=== PATIENT | female | born 1960 | race Caucasian/White ===

== ENCOUNTER → 2024-04-03 | Outpatient (CLI) | payer BC, SELFPAY ==
[2024-04-03 14:34] LABS: Alanine Aminotransferase 20 U/L (10-49); Albumin, Serum 4.7 gm/dL (3.4-4.8); Albumin/Globulin Ratio 1.9 (1.2-2.2); Alkaline Phosphatase 74 U/L (46-116); Anion Gap 9 (7-16); Aspartate Amino Transferase 12 U/L (0-34); BUN/Creatinine Ratio 21 Ratio (12-20); Bilirubin,Total 0.5 mg/dL (0.3-1.2); Blood Urea Nitrogen 21 mg/dL (9-23); Calcium 9.3 mg/dL (8.3-10.6); Calcium (Corrected) 9.3 mg/dL (8.5-10.1); Carbon Dioxide 26.7 mMol/L (20.0-31.0); Chloride 98 mMol/L (98-107); Cholesterol 134 mg/dL (132-200); Globulin 2.5 gm/dL (2.3-3.5); Glucose 94 mg/dL (74-106); Glucose Estimated Average 148 mg/dL (80-131); HDL Cholesterol 45 mg/dL (40-60); Hemoglobin A1C 6.8 % Hgb (4.8-6.0); LDL Cholesterol,Calculated 54 mg/dL (0-130); Osmolality,Calculated 271 (275-295); Potassium 4.5 mMol/L (3.4-5.1); Sodium 134 mMol/L (136-145); Total Protein 7.2 gm/dL (5.7-8.2); Triglycerides 177 mg/dL (30-150); eGFR > 60 See Note
[2024-04-03 14:38] LABS: Creatinine MALB Rnd Ur 114 mg/dL (30-125); Microalbumin, Random Urine < 3 mg/L (0-300)
== END | disposition home or self-care (01) ==
PROVIDERS: PCP Specialist; Referring Provider Specialist; Visit Provider Specialist
DX: E11.65 Type 2 diabetes mellitus with hyperglycemia (principal)
CPT/HCPCS: 36415; 80053; 80061; 82043; 82570; 83036

== ENCOUNTER → 2024-09-04 | Outpatient (CLI) | payer MEDICARE, BC, SELFPAY ==
[2024-09-04 12:41] LABS: Alanine Aminotransferase 12 U/L (10-49); Albumin, Serum 4.7 gm/dL (3.4-4.8); Albumin/Globulin Ratio 1.7 (1.2-2.2); Alkaline Phosphatase 73 U/L (46-116); Anion Gap 11 (7-16); Aspartate Amino Transferase 14 U/L (0-34); BUN/Creatinine Ratio 19 Ratio (12-20); Bilirubin,Total 0.5 mg/dL (0.3-1.2); Blood Urea Nitrogen 19 mg/dL (9-23); Calcium 9.6 mg/dL (8.3-10.6); Calcium (Corrected) 9.6 mg/dL (8.5-10.1); Carbon Dioxide 25.5 mMol/L (20.0-31.0); Cardiac Risk Estimate 2.9 RATIO (3.7-5.6); Chloride 99 mMol/L (98-107); Cholesterol 121 mg/dL (132-200); Creatinine (Component) 1.0 mg/dL (0.6-1.3); Globulin 2.7 gm/dL (2.3-3.5); Glucose 96 mg/dL (74-106); HDL Cholesterol 42 mg/dL (40-60); LDL Cholesterol,Calculated 52 mg/dL (0-130); Osmolality,Calculated 272 (275-295); Potassium 4.7 mMol/L (3.4-5.1); Sodium 135 mMol/L (136-145); Total Protein 7.4 gm/dL (5.7-8.2); Triglycerides 134 mg/dL (30-150); eGFR > 60 See Note
[2024-09-04 13:31] LABS: Creatinine MALB Rnd Ur 143 mg/dL (30-125); Microalbumin Creat Ratio 3 mg/gCrea (<30); Microalbumin, Random Urine 4 mg/L (0-300)
[2024-09-04 13:56] LABS: Glucose Estimated Average 117 mg/dL (80-131); Hemoglobin A1C 5.7 % Hgb (4.8-6.0)
== END | disposition home or self-care (01) ==
LOC: COPL 11:19
PROVIDERS: PCP Specialist; Referring Provider Specialist; Visit Provider Specialist
DX: E11.69 Type 2 diabetes mellitus with other specified complication (principal)
CPT/HCPCS: 36415; 80053; 80061; 82043; 82570; 83036

== ENCOUNTER → 2024-11-09 | Outpatient (CLI) | payer MEDICARE, BC, SELFPAY ==
--- NOTE | 2024-11-09 13:00 | XR_ITS ---
Examination: Breast ultrasound complete, bilateral Date and time of exam: November 09, 2024 1315 hours INDICATIONS: Mammogram 11/29/2023 fibroadenomas inner left breast, history breast cystic disease Technique: Real-time grayscale ultrasonographic imaging bilateral breasts, including all 4 quadrants as well as nipple retroareolar and axillary regions. Findings: Sonographic images right breast Retroareolar cyst 5 x 4 mm No solid nodules Sonographic images left breast 9:00 cyst 5 x 4 mm 10:00 circumscribed nodule 9 x 9 mm IMPRESSION: BI-RADS Category 3: Probably benign findings Recommend 1 additional 6 month left breast sonogram follow-up to document stability of 10:00 nodule described above
--- NOTE | 2024-11-09 14:00 | XR_ITS ---
Examination: Diagnostic digital mammography, bilateral Computer aided detection 3-D breast Tomosynthesis, bilateral Date and time of exam: November 09, 2024 1335 hours, compared to mammograms dating to February 03, 2021 INDICATIONS: History left breast biopsy, negative, family history, sister, breast cancer Technique: Nonmagnified MLO, CC views of the breasts to been obtained, reconstructed from 3-D Tomosynthesis images. R2 computer aided detection program utilized for evaluation of suspicious masses and/or abnormal calcifications. 3-D Tomosynthesis images obtained. Findings: Scattered areas of fibroglandular density. Stable fibroadenoma inner left breast Benign calcifications. No interval suspicious masses Impression: BI-RADS Category 2: Benign findings Recommend yearly follow-up mammography
== END | disposition home or self-care (01) ==
PROVIDERS: PCP Specialist; Referring Provider Specialist; Visit Provider Specialist
DX: R92.323 Mammographic fibroglandular density, bilateral breasts (principal); R92.1 Mammographic calcification found on diagnostic imaging of breast; N63.22 Unspecified lump in the left breast, upper inner quadrant
CPT/HCPCS: 76641; 77062; 77066; G0279

== ENCOUNTER 2025-01-03 14:46 | Emergency (ER) | payer MEDICARE, BC, SELFPAY ==
[2025-01-03 15:35] VITALS: BP 149/75; PULSE 78; RESP 20; TEMP 36.6; O2SAT 96
--- NOTE | 2025-01-03 15:42 | EDNOTE_ITS ---
<Statement entered by Krysten Alexander MD - 01/07/25 16:24> As co-signing physician, I was present and available for consult prn. I concur with the plan and care as documented by the midlevel provider. ED Head Injury RME/HPI General Chief complaint: Fall Stated complaint: FALL LANDING ON FACE & L) ARM Time Seen by Provider: 01/03/25 15:41 Source: patient Arrival date/time: 01/03/25 14:46 Mode of arrival: ambulatory Limitations: no limitations RME / HPI Complaint: head injury (Patient had a ground-level fall resulting in a laceration to the forehead, also complains of left elbow pain) Onset (ago): hour(s) Mechanism of Injury: fall (Ground-level hitting her face on a curved cement embankment. Denies LOC.) Place: outdoors Loss of Consciousness: no Location of injury: frontal Severity: moderate Severity scale (1-10): 5 Quality: sharp Radiation: none and neck (There is mild neck pain) Other Injuries: upper extremity (Abrasion left elbow) Associated symptoms: denies other symptoms Related Data Home Medications ?Medication ?Instructions ?Recorded ?Confirmed albuterol sulfate 90 mcg/actuation 2 puff inhalation Q 6HR PRN 05/14/15 10/03/21 aerosol inhaler (ProAir HFA) Shortness Of Breath #0 in halations metformin 500 mg tablet 500 mg PO QDAY #0 tabs 05/1310/03/21 (Glucophage) fluticasone propionate 50 1 spray intranasal QDAY PRN 12/29/16 10/03/21 mcg/actuation nasal Allergy Symptoms #0 spry spray,suspension tiotropium bromide 18 mcg capsule 1 cap inhalation QDA Y ##90 12/29/16 10/03/21 with inhalation device (Spiriva with HandiHaler) rosuvastatin 5 mg tablet (Crestor) 5 mg PO HS #0 tabs 03/22/17 10/03/21 metronidazole 0.75 % topical gel 1 applic topical BID 09/12/19 10/03/21 nifedipine 60 mg tablet,extended 60 mg PO BID 09/12/19 10/03/21 release cholecalciferol (vitamin D3) 50 2,000 mcg PO QDAY 07/0110/03/21 mcg (2,000 unit) capsule (Vitamin D3) escitalopram oxalate 20 mg tablet 20 mg PO BID 1 10/03/21 (Lexapro) estradiol 0.01% (0.1 mg/gram) 1 applic QWEEK 07/28/20 10/03/21 vaginal cream linaclotide 72 mcg capsule 290 mcg PO QDAY 07/28/20 (Linzess) oxcarbazepine 300 mg tablet 300 mg PO BID 07/28/2007/20 spironolactone 25 mg tablet 25 mg PO QDAY 07/28/2007/20 tretinoin 0.1 % topical cream 1 applic topical QDAY 10/03/21 docusate sodium 50 mg tablet 50 mg PO DAILY 10/03/21 0 10/03/21 melatonin 5 mg tablet 5 mg PO HS PRN Sleep 2 10/03/21 simethicone 62.5 mg oral strips 1 strip PO HS 10/03/21 10/03/21 (Gas-X) Allergies Allergy/AdvReac Type Severity Reaction Status Date / Time erythromycin base Allergy Severe ABDOMINAL Verified 01/03/25 14:49 PAIN / BACK PAIN/ Penicillins Allergy Severe ANAPHYLAXIS Verified 01/03/25 14:49 SHOCK clindamycin Allergy Verified 01/03/25 14:49 felodipine Allergy Verified 01/03/25 14:49 hydrochlorothiazide (From Allergy Verified 01/03/25 14:49 Dyazide) lisinopril (From Zestril) Allergy Verified 01/03/25 14:49 triamterene (From Dyazide) Allergy Verified 01/03/25 14:49 BANDAIDS Allergy Unknown Rash Uncoded 01/03/25 14:49 GLUE Allergy Unknown Rash Uncoded 01/03/25 14:49 SULFA Allergy Unknown Gastrointestinal Uncoded 01/03/25 14:49 Upset TAPE Allergy Unknown Rash Uncoded 01/03/25 14:49 Review of Systems Constitutional Constitutional: Reports system reviewed and no additional complaints, except as documented Eyes Eyes: Reports system reviewed and no additional complaints, except as documented, Denies dry eyes, Denies exophthalmos and Reports floaters Cardiovascular Cardiovascular: Denies chest pain with activity and Denies claudication ED Exam Narrative Physical exam: Laceration to the forehead is in the shape of a T it is approximately 3 cm in its entirety. It is well-approximated. There is no apparent step-off at this area. The posterior aspect of the neck at approximate level C4-C5-C6 is tender to palpation. Patient retains full range of motion in the neck is midline. The left elbow was positive for an abrasion and skin tear. There is no iris laceration. Patient continues to have range of motion of her left elbow. There is tenderness to palpation. General Limitations: Present no limitations General appearance: Present alert and in no apparent distress Head Head exam: Present other Eye Eye exam: Present normal appearance, PERRL and EOMI ENT ENT exam: Present normal exam and normal oropharynx Neck Neck exam: Present normal inspection and full ROM Chest Chest inspection: Present normal inspection Extremities Exam Extremities exam: Present normal inspection Back Exam Back exam: Present normal inspection Neurological Exam Neurological exam: Present alert and oriented X3 Psychiatric Psychiatric exam: Present normal affect and normal mood Skin Skin exam: Present warm, dry and intact (There is a laceration to the forehead i t is in the shape of a T. It is well-approximated.) Course Course Course Narrative: Patient will be sutured and she will be sent to CT for CT of the head, CT of the neck and a left elbow x-ray. Patient will have a CBC, CMP, PT and PTT. Quality Measures none Orders Category Date Time Status CT cervical spine wo con Stat Exams 01/03/25 15:[address] head/brain wo con Stat Exams 01/03/25 15:46 Completed XR elbow LT 2V Stat Exams 01/03/25 18:48 Completed CBC Stat Lab 01/03/25 16:01 Completed CMP [Comprehensive Metabolic Panel] Stat Lab 01/03/25 16:01 Completed PT [Prothrombin Time with INR] Stat Lab 01/03/25 16:01 Completed PTT [Partial Thromboplastin Time] Stat Lab 01/03/25 16:01 Completed Vital Signs Vital signs: Vital Signs Temperature 97.8 F 01/03/25 15:35 Pulse Rate 78 01/03/25 15:35 Respiratory Rate 20 01/03/25 15:35 Blood Pressure 149/75 H 01/03/25 15:35 Pulse Oximetry (%) 96 01/03/25 15:35 Oxygen Delivery Method Room Air 01/03/25 15:35 Pulse ox room air is 96% PROCEDURES: Laceration Laceration 1: Site: face Size (cm): 3 Description: linear Depth: simple, single layer Local Anesthetic: lidocaine 1% Amount of anesthesia used (mL): 8 Suture size (cm): 5-0 Technique: simple, interrupted Subcutaneous layer closed with: vicryl Size: 5-0 Head Injury MDM Narrative MDM Narrative:: Patient will have sutures and she will be discharged in no apparent distress. This is after all her wounds are dressed. She will follow-up with primary care physician in 2 days for a wound check. Sutures out in 5-7. If she is worse she is to return here for follow-up to today's visit. Patient data External records reviewed:: Other (specify) Clinical information provided by:: none Social determinants that could affect healthcare access:: none Patient has the following chronic illnesses:: NA How is presenting disease/condition affected by chronic disease/condition?: caused by (Mechanical fall) Evaluation data The following diagnostics were reviewed and interpreted by me:: radiology exam(s) Lab and/or radiology exams considered but not ordered:: Radiology CT demonstrates no apparent fracture to the calvarium. The left elbow is not fractured. Lab results are well within her normal limits. Interpretation Summary: NA Medications / Prescriptions Medications or Prescriptions considered but not ordered:: NA Medication administrations:: NA Consultations Consultation(s) initiated? (list below): No Diagnosis Differential diagnosis head injury: concussion without loss of consciousness, closed head injury and postconcussion syndrome Most likely diagnosis given after review of the tests above:: NA Admission Indicated Admission indicated?: not indicated Explain why admission is indicated or not indicated:: NA Admission Request Was there a request for admission?: No Admission Attestation Admission request attestation: NA Disposition Plan Disposition Plan: Discharge Discharge Attestation Discharge Attestation: The patient and all family members were given an opportunity to ask questions and understood the discharge instructions. Discharge instructions specifically effects, indications for sooner follow up or return to the emergency department, and the expected course of current diagnosis. Patient condition: Stable Discharge Plan Plan Patient Disposition: HOME (Self Care) Discharge Disposition comment: Discharge in no apparent distress Patient condition on transfer: Stable Prescriptions/Referrals Prescriptions/Med Rec: No Action metformin [Glucophage] 500 MG tablet 500 mg PO QDAY Qty: 0 Rx Instructions: half tab po qd. albuterol sulfate [ProAir HFA] 8.5 GM HFA aerosol inhaler 2 puff Inhalation Q6HR PRN (Reason: Shortness Of Breath) Qty: 0 Spiriva with HandiHaler 18 mcg Capsule, W/Inhalation Device 1 cap INHALATION QDAY Qty: 90 fluticasone propionate 50 mcg/actuation [place],Suspension 1 spray INTRANASAL QDAY PRN (Reason: Allergy Symptoms) Qty: 0 rosuvastatin [Crestor] 5 MG tablet 5 mg PO HS Qty: 0 nifedipine 60 mg Tablet Extended Release 60 mg PO BID metronidazole 0.75 % Gel 1 applic TOPICAL BID tretinoin 0.1 % cream 1 applic TOPICAL QDAY oxcarbazepine 300 mg tablet 300 mg PO BID Patient Comments: TAKE 1 TABLET BY MOUTH TWICE DAILY spironolactone 25 mg tablet 25 mg PO QDAY Patient Comments: TAKE 1 TABLET BY MOUTH EVERY DAY estradiol 0.01 % (0.1 mg/gram) cream 1 applic QWEEK Patient Comments: APPLY HALF A GRAM VAGINALLY TWICE A WEEK escitalopram oxalate [Lexapro] 20 mg tablet 20 mg PO BID Patient Comments: 1 tab by mouth BID cholecalciferol (vitamin D3) [Vitamin D3] 50 mcg (2,000 unit) Capsule 2,000 mcg PO QDAY Linzess 72 mcg capsule 290 mcg PO QDAY Patient Comments: TAKE 1 CAPSULE BY MOUTH AT LEAST 30 MINUTES BEFORE THE FIRST MEAL OF THE DAY docusate sodium 50 mg Tablet 50 mg PO DAILY Gas-X 62.5 mg Strip 1 strip PO HS melatonin 5 mg Tablet 5 mg PO HS PRN (Reason: Sleep) Referrals: Collins Ibarra MD [Primary Care Provider, Family Practice] - In 1 week Problem List Clinical Impression: Head trauma, Laceration Impression comment: To head with laceration status post mechanical fall with abrasion to the left elbow. Patient/Caregiver Discharge Instructions Discharge Activity: activity as tolerated Education Materials: After a Concussion Print Language: Uzbek Stand Alone Forms: Kitty Award Info., Patient Portal Info Letter PA/STACKER STRAIGHTENER Supervising Physician PA/STACKER STRAIGHTENER Supervising Physician: DEVIKA
--- NOTE | 2025-01-03 15:46 | XR_ITS ---
Examination: CT brain head without contrast. 2-D sagittal coronal reconstructions Date and time of exam: 01/03/2025 at 4:50 p.m. INDICATION: GLF trauma to forehead, neck pain COMPARISON: Brain MRI 09/04/2016 CTDI: vol (mGy): 52.6 DLP: (mGycm): 1027 Technique: Multiple CT axial sections of the brain have been obtained, 5 mm slice thickness. Contrast has not been administered. 2-D sagittal, coronal reconstructions have been obtained Low dose protocols were performed. One or more of the following dose reduction techniques were used; automated exposure control, adjustment of the mA and/or KV according to patient size, use of iterative reconstruction technique. Findings: BRAIN PARENCHYMA: The brain parenchyma appears normal for age. Bal-white matter junctions are intact; no evidence for acute transcortical ischemic infarction. No intraparenchymal hemorrhage, discrete mass or midline shift. No cerebellar tonsillar ectopia. No apparent acute abnormality of the cerebellum. VENTRICLES / EXTRA-AXIAL SPACES: No hydrocephalus, extra-axial hematoma or mass. CALVARIUM: No skull fracture or concerning focal lesion. SINUSES: No significant opacification of the paranasal sinuses. The visualized mastoid air cells are clear. OTHER EXTRACRANIAL STRUCTURES: Mild frontal scalp swelling is present, along with small gas pockets in the scalp compatible with a laceration/contusion. IMPRESSION: Negative noncontrast head CT for acute intracranial abnormality. Frontal scalp contusion/laceration without underlying skull fracture or intracranial hemorrhage.
--- NOTE | 2025-01-03 15:58 | XR_ITS ---
Examination: CT cervical spine without contrast 2-D sagittal reconstructions 2-D coronal reconstructions 3-D reconstructions. Exam date and time: 01/03/2025 at 4:50 p.m. INDICATION: GLF trauma to forehead, neck pain. History of cervical fusion. COMPARISON: Cervical spine radiographs 12/31/2015 CTDI:vol (mGy) 17.7 DLP: (mGycm) 406 Technique: Multiple 2 mm axial sections of the cervical spine have been obtained. The coronal and sagittal reconstructions have been obtained. 3-D reconstructions have been obtained. Low dose protocols were performed. One or more of the following dose reduction techniques were used; automated exposure control, adjustment of the mA and/or KV according to patient size, use of iterative reconstruction technique. Findings: No evidence for acute fracture or traumatic subluxation in the cervical spine. Radiographically intact ACDF identified from C5-C7, without hardware loosening or fracture. There is mild reversal of the normal cervical lordosis as well as mild grade 1 anterolisthesis centered at the C4-C5 level. Anterior osteophytes noted at C4-C5 as well as at C7-T1. No evidence for large disc herniation or significant acquired central canal stenosis. No prevertebral soft tissue swelling. Chronic appearing midline ligamentous calcification is present posterior to the C7 spinous process. Multilevel mild facet arthropathy is present. No evidence for facet dislocation. There is no evidence for high-grade neural foraminal stenosis. No cervical lymphadenopathy. A hypodense left thyroid lobe nodule measures approximately 2.2 cm in size. The visualized lung apices are clear. Impression: Negative CT cervical spine for acute fracture or traumatic subluxation. Cervical degenerative changes as described. Intact ACDF from C5-C7. Hypodense left thyroid lobe nodule measuring 2.2 cm in size can be characterized nonemergent with thyroid ultrasound.
[2025-01-03 16:12] LABS: Basophils # (Auto) 0.1 Thou/mm3 (0.0-0.2); Basophils % (Auto) 1 % (0-2.5); Eosinophils # (Auto) 0.1 Thou/mm3 (0.0-0.5); Eosinophils % (Auto) 1 % (0-10); Hematocrit 38.0 % (36.0-46.0); Hemoglobin 13.2 g/dL (12.0-16.0); Immature Granulocytes Auto 0.03 Thou/mm3 (0.00-0.00); Lymphocytes # (Auto) 1.3 Thou/mm3 (1.0-4.8); Lymphocytes % (Auto) 13 % (10-50); Mean Corpuscular HGB Conc 34.7 g/dl (31.0-37.0); Mean Corpuscular Hemoglobin 28.4 pg (25.0-35.0); Mean Corpuscular Volume 82 fL (80-100); Monocytes # (Auto) 0.7 Thou/mm3 (0.0-0.8); Monocytes % (Auto) 7 % (0-12); Neutrophils # (Auto) 7.4 Thou/mm3 (1.8-7.7); Neutrophils % (Auto) 78 % (37-80); Nucleated Red Blood Cell # 0.00 Thou/mm3 (0.00-0.00); Nucleated Red Blood Cell % 0 /100 WBC (0); Platelet Count 291 Thou/mm3 (140-440); RDW Standard Deviation 38.8 fL (36.4-46.3); Red Blood Count 4.64 Miln/mm3 (4.00-5.20); White Blood Count 9.5 Thou/mm3 (3.6-11.0)
[2025-01-03 16:41] LABS: INR 1.0 (0.9-1.3); Partial Thromboplastin Time 26.5 Seconds (22.0-36.0); Prothrombin Time 10.7 Seconds (9.0-12.2)
[2025-01-03 16:44] LABS: Alanine Aminotransferase 11 U/L (10-49); Albumin, Serum 5.1 gm/dL (3.4-4.8); Albumin/Globulin Ratio 2.4 (1.2-2.2); Alkaline Phosphatase 76 U/L (46-116); Anion Gap 12 (7-16); Aspartate Amino Transferase 14 U/L (0-34); BUN/Creatinine Ratio 17 Ratio (12-20); Bilirubin,Total 0.4 mg/dL (0.3-1.2); Blood Urea Nitrogen 17 mg/dL (9-23); Calcium 9.3 mg/dL (8.3-10.6); Calcium (Corrected) 9.3 mg/dL (8.5-10.1); Carbon Dioxide 25.4 mMol/L (20.0-31.0); Chloride 94 mMol/L (98-107); Creatinine (Component) 1.0 mg/dL (0.6-1.3); Globulin 2.1 gm/dL (2.3-3.5); Glucose 135 mg/dL (74-106); Osmolality,Calculated 266 (275-295); Potassium 4.0 mMol/L (3.4-5.1); Sodium 131 mMol/L (136-145); Total Protein 7.2 gm/dL (5.7-8.2); eGFR > 60 See Note
--- NOTE | 2025-01-03 18:48 | XR_ITS ---
EXAMINATION: Left elbow 2 views TECHNIQUE: AP lateral left elbow 2 views Date and time: January 03, 2025, 194 hours INDICATIONS: Ground-level fall today with injury to the elbow, elbow pain. FINDINGS: No fracture or dislocation No foreign body IMPRESSION: No fracture or dislocation
== END 2025-01-03 20:24 | disposition home or self-care (01) ==
PROVIDERS: Physician Assistant; Emergency Provider Emergency Medicine; PCP Specialist
DX: S50.312A Abrasion of left elbow, initial encounter (principal); S01.81XA Laceration without foreign body of other part of head, initial encounter; W18.30XA Fall on same level, unspecified, initial encounter
CPT/HCPCS: 12002; 36415; 70450; 72125; 73070; 80053; 85025; 85610; 85730; 99284

== ENCOUNTER → 2025-01-08 | Outpatient (CLI) | payer MEDICARE, BC, SELFPAY ==
[2025-01-08 10:39] LABS: Misc Send Out* See Sep Rpt
[2025-01-08 11:42] LABS: Glucose Estimated Average 123 mg/dL (80-131); Hemoglobin A1C 5.9 % Hgb (4.8-6.0)
[2025-01-08 11:44] LABS: AFP Non-Pregnant 2.20 ng/mL (<8.10)
[2025-01-08 11:50] LABS: Alanine Aminotransferase 14 U/L (10-49); Albumin, Serum 4.9 gm/dL (3.4-4.8); Albumin/Globulin Ratio 2.1 (1.2-2.2); Alkaline Phosphatase 70 U/L (46-116); Anion Gap 8 (7-16); Aspartate Amino Transferase 14 U/L (0-34); BUN/Creatinine Ratio 18 Ratio (12-20); Bilirubin,Total 0.5 mg/dL (0.3-1.2); Blood Urea Nitrogen 18 mg/dL (9-23); Calcium 9.6 mg/dL (8.3-10.6); Calcium (Corrected) 9.6 mg/dL (8.5-10.1); Carbon Dioxide 25.3 mMol/L (20.0-31.0); Cardiac Risk Estimate 2.8 RATIO (3.7-5.6); Chloride 97 mMol/L (98-107); Cholesterol 127 mg/dL (132-200); Creatinine (Component) 1.0 mg/dL (0.6-1.3); Globulin 2.3 gm/dL (2.3-3.5); Glucose 101 mg/dL (74-106); HDL Cholesterol 45 mg/dL (40-60); LDL Cholesterol,Calculated 62 mg/dL (0-130); Osmolality,Calculated 262 (275-295); Potassium 4.4 mMol/L (3.4-5.1); Sodium 130 mMol/L (136-145); Total Protein 7.2 gm/dL (5.7-8.2); Triglycerides 101 mg/dL (30-150); eGFR > 60 See Note
[2025-01-08 11:53] LABS: Creatinine MALB Rnd Ur 232 mg/dL (30-125); Microalbumin Creat Ratio 25 mg/gCrea (<30); Microalbumin, Random Urine 58 mg/L (0-300)
== END | disposition home or self-care (01) ==
LOC: COPL 10:15
PROVIDERS: PCP Specialist; Referring Provider Specialist; Visit Provider Specialist
DX: E11.65 Type 2 diabetes mellitus with hyperglycemia (principal); E78.2 Mixed hyperlipidemia; K76.0 Fatty (change of) liver, not elsewhere classified
CPT/HCPCS: 36415; 80053; 80061; 81596; 82043; 82105; 82570; 83036

== ENCOUNTER → 2025-01-29 | Outpatient (CLI) | payer MEDICARE, BC, SELFPAY ==
--- NOTE | 2025-01-29 08:00 | XR_ITS ---
EXAMINATION: Thyroid sonography complete TECHNIQUE: Grayscale sonographic images thyroid lobes Date and time: January 29, 2025, 0750 hours INDICATIONS: 22 mm thyroid nodule on the left on CT cervical spine January 03, 2025 FINDINGS: Right thyroid 4.2 cm Upper pole nodule 5 x 5 mm Lower pole cyst 2 x 3 mm Left thyroid 4.6 cm Upper pole nodule vascular 2.6 x 1.9 x 1.6 cm IMPRESSION: Upper pole vascular left thyroid nodule 2.6 x 1.9 x 1.6 cm, consider ultrasound-guided fine-needle aspiration of this nodule
== END | disposition home or self-care (01) ==
LOC: CDIM 07:33
PROVIDERS: PCP Specialist; Referring Provider Specialist; Visit Provider Specialist
DX: E04.1 Nontoxic single thyroid nodule (principal)
CPT/HCPCS: 76536